=== PATIENT | female | born 1975 | race Caucasian/White ===

== ENCOUNTER 2022-05-24 13:42 | Outpatient (CLI) | payer OTHER, SELFPAY ==
--- NOTE | 2022-05-24 13:40 | CRLHL7_ITS ---
For Patients: As a result of the Cures Act, medical imaging exams and procedure reports are released immediately into your electronic medical record. You may view this report before your referring provider. If you have questions, please contact your health care provider. BILATERAL SCREENING MAMMOGRAM WITH COMPUTER-AIDED DETECTION AND TOMOSYNTHESIS TECHNIQUE: CC, MLO and implant-displaced views were obtained. These mammographic images have been obtained using full-field digital technique. These mammographic images were interpreted with the benefit of computer-aided detection. Breast tomosynthesis was used in this interpretation. COMPARISON FILM: 04/09/21, 02/06/19, 01/08/18. FINDINGS: The breasts are extremely dense, which lowers the sensitivity of mammography. IMPRESSION: There is no radiographic evidence for malignancy. ASSESSMENT: BI-RADS Category 1: Negative RECOMMENDATION: Routine screening mammogram in 1 year. A lay language report of this examination will be provided to the patient. MAGUE ELLIS M.D. Diagnostic/Breast Radiologist [email or web address] Transcribed: 05/25/2022, 2:[address]/Dictated by: Mague Ellis MD @ 05/25/2022 8:58:00 AM (Electronically Signed)
== END 2022-05-24 13:43 | disposition home or self-care (01) ==
LOC: MAMMO 13:42
PROVIDERS: Visit Provider Registered Nurse
DX: Z12.31 Encounter for screening mammogram for malignant neoplasm of breast (principal); R92.2 Inconclusive mammogram
CPT/HCPCS: 77063; 77067

== ENCOUNTER 2022-10-21 10:37 | Outpatient (CLI) | payer OTHER, SELFPAY ==
--- NOTE | 2022-10-21 11:36 | W.ANESCHARGE ---
Anesthesia Charges Start Date/Time Anesthesia Start Date: 10/21/22 Anesthesia Start Time: 11:10 Stop Date/Time Anesthesia Stop Date: 10/21/22 Anesthesia Stop Time: 11:34
== END 2022-10-21 10:38 | disposition home or self-care (01) ==
LOC: OP CLINIC 10:38
PROVIDERS: PCP Nurse Practitioner Family; Visit Provider Internal Medicine
DX: Z12.11 Encounter for screening for malignant neoplasm of colon (principal)
CPT/HCPCS: 00812; 45378; J2704

== ENCOUNTER 2023-06-08 08:34 | Outpatient (CLI) | payer OTHER, SELFPAY | END 2023-06-08 08:35 | disposition home or self-care (01) | LOC: NFLDREF 06-09 12:49 | PROVIDERS: PCP Nurse Practitioner Family; Referring Provider Nurse Practitioner Family; Visit Provider Nurse Practitioner Family | DX: Z13.220 Encounter for screening for lipoid disorders (principal); Z13.1 Encounter for screening for diabetes mellitus | CPT/HCPCS: 80061; 82947 ==

== ENCOUNTER 2023-08-22 14:40 | Outpatient (CLI) | payer OTHER, SELFPAY ==
--- NOTE | 2023-08-22 15:00 | CRLHL7_ITS ---
For Patients: As a result of the Century Cures Act, medical imaging exams and procedure reports are released immediately into your electronic medical record. You may view this report before your referring provider. If you have questions, please contact your health care provider. Indication: Pain of right sternoclavicular joint with move Technique: Noncontrast CT of the clavicles and sternoclavicular joints with multiplanar reformations. Please note that all CT scans at this facility use dose modulation, iterative reconstruction, and/or weight-based dosing when appropriate to reduce radiation dose to as low as reasonably achievable. Comparison: 08/10/2023 Findings: No acute fracture. No suspicious osseous lesion. Sternoclavicular alignment within normal limits. No significant subluxation. Tiny subchondral cysts along the posterior aspect of the right manubrium at the inferior margin of the right sternoclavicular joint (series 2, image 52). Sternoclavicular joints otherwise normal in appearance and symmetric. Clavicles intact. No suspicious rib abnormality. Included upper lungs are clear. Bilateral breast implants, partially included in the imaging field of view. No suspicious soft tissue abnormality. Impression: Minimal degenerative change of the right sternoclavicular joint. Please note that all CT scans at this facility use dose modulation, iterative reconstruction, and/or weight-based dosing when appropriate to reduce radiation dose to as low as reasonably achievable. Dictated by Reed Ravi MD @ 08/23/2023 10:09:29 AM (Electronically Signed)
== END 2023-08-22 14:41 | disposition home or self-care (01) ==
LOC: CT 14:41
PROVIDERS: PCP Nurse Practitioner Family; Visit Provider Orthopaedic Surgery
DX: M19.011 Primary osteoarthritis, right shoulder (principal)
CPT/HCPCS: 71250

== ENCOUNTER 2024-09-26 10:50 | Outpatient (CLI) | payer OTHER, SELFPAY ==
[2024-09-28 04:11] LABS: HPV Source Endocervical
[2024-10-01 11:50] LABS: Pap Test Digital Imaging Done
== END 2024-09-26 10:51 | disposition home or self-care (01) ==
PROVIDERS: PCP Nurse Practitioner Family; Visit Provider Nurse Practitioner Family
DX: Z12.4 Encounter for screening for malignant neoplasm of cervix (principal); Z11.51 Encounter for screening for human papillomavirus (HPV); Z13.6 Encounter for screening for cardiovascular disorders; Z13.1 Encounter for screening for diabetes mellitus
CPT/HCPCS: 80061; 82947; 87624; 87625; 88141; 88142; 88175

== ENCOUNTER 2025-01-28 13:19 | Outpatient (CLI) | payer OTHER, SELFPAY ==
--- NOTE | 2025-01-28 13:40 | CRLHL7_ITS ---
For Patients: As a result of the Century Cures Act, medical imaging exams and procedure reports are released immediately into your electronic medical record. You may view this report before your referring provider. If you have questions, please contact your health care provider. INDICATION: BILATERAL SCREENING MAMMMOGRAM, ASYMPTOMATIC 49 Y/O FEMALE COMPARISON: 05/24/2022, 04/19/2021, 04/09/2021 TECHNIQUE: Digital mammogram in CC and MLO projections including computer-aided detection (CAD) and tomosynthesis. BREAST COMPOSITION: The breasts are heterogeneously dense, which may obscure small masses. FINDINGS: No suspicious findings. ASSESSMENT: BI-RADS 2 Benign RECOMMENDATION: Annual screening mammogram. A lay language report of this examination will be provided to the patient. Dictated by: José Corona MD @ 01/29/2025 10:31:09 (Electronically Signed)
== END 2025-01-28 13:20 | disposition home or self-care (01) ==
LOC: MAMMO 13:20
PROVIDERS: PCP Nurse Practitioner Family; Visit Provider Nurse Practitioner Family
DX: Z12.31 Encounter for screening mammogram for malignant neoplasm of breast (principal); R92.333 Mammographic heterogeneous density, bilateral breasts; Z98.82 Breast implant status
CPT/HCPCS: 77063; 77067